=== PATIENT | male | born 1960 | race Caucasian/White ===

== ENCOUNTER 2018-05-31 02:43 | Day surgery (SDC) | payer OTHER ==
[~2018-05-31] VITALS: Ht 182.9 cm; Wt 73.0 kg
[~2018-05-31 02:43] MED LIST: CHOL100052 PO; MULT1TAB64 PO
[2018-05-31 10:03] VITALS: BP 134/92
[2018-05-31] MEDS ORDERED: NORMOSOL R SOLN(*) 1000 ML BAG 1,000 ML IV PRN (10:15)
[2018-05-31] MEDS ORDERED: LIDOCAINE/SOD BICARB 8.4% SYR ID ONE (10:15)
[2018-05-31] MEDS ORDERED: LIDOCAINE MPF 1% 5 ML VIAL ONE (11:48)
[2018-05-31 11:52] VITALS: BP 97/68
[2018-05-31] MEDS ORDERED: PROPOFOL EMUL(*) 10MG/ML 20 ML 20 ML ONE (12:06)
[2018-05-31 12:15] VITALS: BP 107/72
[2018-05-31 12:28] VITALS: BP 116/87
[2018-05-31 12:29] VITALS: BP 128/91
== END 2018-05-31 12:48 | disposition home or self-care (01) ==
LOC: OR 02:43
PROVIDERS: ATTEND Family Medicine
DX: Z12.11 Encounter for screening for malignant neoplasm of colon (principal); Z86.010 Personal history of colon polyps
CPT/HCPCS: 00812; 45378; J2001; J2704